=== PATIENT | male | born 1985 | race Two or more races ===

== ENCOUNTER 2020-11-05 10:51 | Emergency (ER) | payer MEDICAID, OTHER ==
[~2020-11-05] VITALS: Ht 185.4 cm; Wt 68.0 kg
[2020-11-05] MEDS ORDERED: PANTOPRAZOLE 40 MG/10 ML VIAL INJ IV ONE (11:15)
[2020-11-05] MEDS ORDERED: PROCHLORPERAZINE EDISYLATE 5 MG/ML 2ML VIAL IV ONE (11:15)
[2020-11-05] MEDS ORDERED: SODIUM CHLORIDE 0.9% 1,000 ML IVB ONE (11:15)
[2020-11-05 11:32] LABS: Basophils # (auto) 0 10 ^3/uL (0-0.2); Basophils % (auto) 0.2 % (0.0-2.0); Eosinophils # (auto) 0.2 10 ^3/uL (0-0.8); Eosinophils % (auto) 1.1 % (0.0-7.0); Hematocrit 40.8 % (41.0-53.0); Hemoglobin 14.3 g/dL (13.5-17.5); Lymphocytes # (auto) 1.7 10 ^3/uL (0.4-5.4); Mean Corpuscular Hemoglobin 32.2 pg (28.0-32.0); Mean Corpuscular Volume 92.2 fL (80.0-100.0); Monocytes # (auto) 0.5 10 ^3/uL (0-1.3); Monocytes % (auto) 3.4 % (0.0-12.0); Neutrophils # (auto) 11.7 10 ^3/uL (1.6-8.6); Neutrophils % (auto) 83.3 % (37.0-80.0); Red Blood Cells 4.43 10^6/uL (4.5-5.90); Red Cell Distribution Width 14.1 % (11.8-14.3); White Blood Cell 14.1 10^3/uL (4.4-10.8)
[2020-11-05 11:53] LABS: Calcium 9.1 mg/dL (8.5-10.1); Magnesium 2.4 mg/dL (1.6-2.6); Potassium 3.9 mmol/L (3.5-5.1)
[2020-11-05 11:56] LABS: BUN/Creatinine Ratio 13.2; Bilirubin, Total 0.4 mg/dL (0.2-1.0); Total Protein 7.9 g/dL (6.4-8.2)
[2020-11-05] MEDS ORDERED: SODIUM CHLORIDE 0.9% 1,000 ML IV ONE (14:45)
[2020-11-05 16:11] VITALS: BP 100/44
== END 2020-11-05 16:26 | disposition home or self-care (01) ==
LOC: EDBD 10:51 → ER 10:51
DX: K21.9 Gastro-esophageal reflux disease without esophagitis (principal); F12.188 Cannabis abuse with other cannabis-induced disorder; D72.829 Elevated white blood cell count, unspecified; F17.200 Nicotine dependence, unspecified, uncomplicated
CPT/HCPCS: 36415; 80053; 80320; 83690; 83735; 85025; 93005; 96361; 96374; 96375; 99285; C9113; J0780; J7030

== ENCOUNTER 2021-04-02 14:17 | Emergency (ER) | payer MEDICAID ==
[~2021-04-02] VITALS: Ht 185.4 cm; Wt 68.0 kg
[2021-04-02] MEDS ORDERED: ONDANSETRON ODT 4 MG TAB PO ONE (15:00)
[2021-04-02 15:20] VITALS: BP 141/70
== END 2021-04-02 15:34 | disposition home or self-care (01) ==
LOC: ER 14:17
DX: R11.2 Nausea with vomiting, unspecified (principal); F17.210 Nicotine dependence, cigarettes, uncomplicated
CPT/HCPCS: 99283; Q0162

== ENCOUNTER 2021-04-23 23:31 | Emergency (ER) | payer MEDICAID ==
[~2021-04-23] VITALS: Ht 185.4 cm; Wt 70.3 kg
[2021-04-23 23:31] VITALS: BP 113/61
== END 2021-04-24 02:10 | disposition left against medical advice (07) ==
LOC: ER 23:31
DX: K08.89 Other specified disorders of teeth and supporting structures (principal); Z53.21 Procedure and treatment not carried out due to patient leaving prior to being seen by health care provider